=== PATIENT | female | born 1960 | race Caucasian/White ===

== ENCOUNTER → 2017-12-06 | Outpatient (CLI) | payer SELFPAY ==
--- NOTE | 2017-12-06 14:33 | RADIOLOGY REPORT (SQ) ---
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 NUMBER OF VIEWS: Three views. TECHNIQUE: AP, lateral, and oblique radiographic images acquired of the right ankle. LIMITATIONS: None. FINDINGS: MINERALIZATION: Normal. BONES: No acute fracture or dislocation. No worrisome bone lesions. Moderate-sized plantar calcanea l spur. JOINTS: No effusions. SOFT TISSUES: No soft tissue swelling. No foreign body. OTHER: No other significant finding. IMPRESSION: NEGATIVE STUDY OF THE RIGHT ANKLE. NO RADIOGRAPHIC EVIDENCE OF ACUTE INJURY. TECHNICAL DOCUMENTATION: JOB ID: [id number] [employer]- All Rights Reserved
== END ==
LOC: EDBD → RAD 13:39
PROVIDERS: ATTEND Internal Medicine Hematology & Oncology
DX: C50.212 Malignant neoplasm of upper-inner quadrant of left female breast (principal); M79.604 Pain in right leg

== ENCOUNTER → 2017-12-08 | Outpatient (CLI) | payer SELFPAY ==
--- NOTE | 2017-12-08 16:29 | RADIOLOGY REPORT (SQ) ---
EXAM DESCRIPTION: NM WHOLE BODY BONE SCAN COMPLETED DATE/TIME: 12/08/2017 3:37 pm REASON FOR STUDY: MAL GLORIA OF UPPER INNER QUADRANT OF LEFT FEMALE BREAST C50.212 MALIG NEOPLASM OF U PPER-INNER QUADRANT OF LEFT FEMAL COMPARISON: No available imaging studies for comparison. RADIONUCLIDE AND DOSE: 21 millicuries Tc99m MDP. The route of agent administration: Intravenous. ADDITIONAL DRUGS AND DOSES: None. TECHNIQUE: Routine delayed images at 3 hour post radionuclide injection acquired of the bony skeleto n including anterior and posterior whole-body projections and additional focused images as needed. LIMITATIONS: None. FINDINGS: BONES: Activity involving the greater trochanter of the right hip. Focal area of increase d activity in the posterior left 3rd rib. No other areas of unusual bony activity. KIDNEYS: Symmetric excretion without obstruction. OTHER: No other significant finding. IMPRESSION: 1. FOCAL AREA OF ACTIVITY INVOLVING THE GREATER TROCHANTER OF THE RIGHT HIP. THIS MAY BE RELATED TO PREVIOUS TRAUMA OR COULD BE DUE TO INFLAMMATION SECONDARY TO TROCHANTERIC BURSITIS. 2. FOCAL AREA OF INCREASED ACTIVITY IN THE POSTERIOR LEFT 3RD RIB. THIS MAY BE RELATED TO PRIOR TRAU MA. 3. NO OTHER AREAS OF ABNORMAL ACTIVITY IN THE SKELETON. CORRELATION OF THE ABOVE FINDINGS WITH X-RAY S OF THE RIGHT HIP AND POSTERIOR LEFT RIBS SHOULD BE CONSIDERED TO EXCLUDE SIGNIFICANT PATHOLOGY. COMMENT: Quality measure 147: No available prior imaging studies for comparison TECHNICAL DOCUMENTATION: JOB ID: [id number] [employer]- All Rights Reserved
== END ==
LOC: EDBD → RAD 08:44
PROVIDERS: ATTEND Internal Medicine Hematology & Oncology
DX: C50.212 Malignant neoplasm of upper-inner quadrant of left female breast (principal); C50.412 Malignant neoplasm of upper-outer quadrant of left female breast
CPT/HCPCS: 78306; A9561; Q9969

== ENCOUNTER → 2017-12-11 | Outpatient (CLI) | payer SELFPAY ==
--- NOTE | 2017-12-11 13:54 | RADIOLOGY REPORT (SQ) ---
EXAM DESCRIPTION: HIP RIGHT AP/LATERAL COMPLETED DATE/TIME: 12/11/2017 10:23 am REASON FOR STUDY: ABN BONE SCAN C50.212 MALIG NEOPLASM OF UPPER-INNER QUADRANT OF LEFT FEMAL COMPARISON: None. NUMBER OF VIEWS: Two views. TECHNIQUE: AP pelvis and additional frog-leg view of the right hip. LIMITATIONS: None. FINDINGS: No fracture or aggressive bone lesion. Enthesopathic changes right greater trochanter. S I joints are normal. IMPRESSION: Enthesopathy. No aggressive bone lesion. TECHNICAL DOCUMENTATION: JOB ID: [id number] [employer]- All Rights Reserved
--- NOTE | 2017-12-11 13:56 | RADIOLOGY REPORT (SQ) ---
EXAM DESCRIPTION: RIBS LEFT W/PA CHEST COMPLETED DATE/TIME: 12/11/2017 10:23 am REASON FOR STUDY: ABN BONE SCAN C50.212 MALIG NEOPLASM OF UPPER-INNER QUADRANT OF LEFT FEMAL COMPARISON: None. TECHNIQUE: Frontal view of the chest and additional views of the left ribs acquired. NUMBER OF VIEWS: Three view. LIMITATIONS: None. FINDINGS: FRONTAL CXR: No pneumothorax. No pleural effusion. No atelectasis or infiltrates. RIBS: No displaced rib fractures. No lytic or blastic bony lesions. OTHER: No other significant finding. IMPRESSION: No evidence of rib fracture or lytic bone lesion. COMMENT: SITE OF TRAUMA/COMPLAINT MARKED/STAMP COMPLETED: NOT APPLICABLE. TECHNICAL DOCUMENTATION: JOB ID: [id number] [employer]- All Rights Reserved
== END ==
LOC: EDBD 09:57 → RAD 09:57
PROVIDERS: ATTEND Internal Medicine Hematology & Oncology
DX: C50.212 Malignant neoplasm of upper-inner quadrant of left female breast (principal)

== ENCOUNTER 2017-12-20 11:59 | Day surgery (SDC) | payer MEDICAID ==
[2017-12-13 11:16] LABS: HEMATOCRIT 40.7 % (36.0-47.0); HEMOGLOBIN 13.9 g/dL (12.0-15.5); MEAN CORPUSCULAR HEMOGLOBIN 30.5 pg (27.0-33.4); MEAN CORPUSCULAR HGB CONC 34.3 g/dL (32.0-36.0); MEAN CORPUSCULAR VOLUME 89 fl (80-97); PLATELET COUNT 212 10^3/uL (150-450); RED BLOOD COUNT 4.57 10^6/uL (3.72-5.28); RED CELL DISTRIBUTION WIDTH 13.7 % (11.5-14.0); WHITE BLOOD COUNT 8.5 10^3/uL (4.0-10.5)
[~2017-12-20 11:59] MED LIST: ACETAMINOPHEN 325 MG TABLET PO PRN; CLINDAMYCIN 600 MG/D5W RTU 600 MG/50 ML RTUPB IV PRN; LACTATED RINGERS 1000 ML IV PRN; LIDOCAINE 0.5% INJ-PF (5 MG/ML) 50 ML SDV SUBCUT PRN; SCOPOLAMINE HYDROBROMIDE 1.5 MG PATCH.TD72 TD PRN
[2017-12-20] MEDS ORDERED: LIDOCAINE 1%/EPINEPHRINE INJ 20 ML VIAL ONE (12:50)
[2017-12-20] MEDS ORDERED: MIDAZOLAM 2 MG/2 ML INJ ONE (14:45)
[2017-12-20] MEDS ORDERED: PROPOFOL INJ 200 MG/20 ML VIAL IV ONE (14:45)
[2017-12-20] MEDS ORDERED: FENTANYL CITRATE INJ/PF 100 MCG/2 ML AMPUL ONE (14:45)
[2017-12-20] MEDS ORDERED: PROMETHAZINE HCL INJ 25 MG/1 ML VIAL IV PRN ×2 (15:19)
[2017-12-20] MEDS ORDERED: FENTANYL CITRATE INJ/PF 100 MCG/2 ML AMPUL IV PRN ×3 (15:19)
[2017-12-20] MEDS ORDERED: DIPHENHYDRAMINE HCL 50 MG/ML VIAL IV PRN (15:19)
--- NOTE | 2017-12-20 15:31 | Operative Report ---
Operative Report DATE OF SURGERY: 12/20/17 PREOPERATIVE DIAGNOSIS: Locally advanced left breast carcinoma POSTOPERATIVE DIAGNOSIS: Same OPERATION: 1. Focused ultrasound of the right neck. 2. Ultrasound directed insertion of right internal jugular vein single-lumen Kfzvsy-d-Zkvs catheter. 3. Portable upright chest x-ray. SURGEON: VIET FIELD 1ST CASTING OPERATOR: DORIS AMAYA ANESTHESIA: LMAC TISSUE REMOVED OR ALTERED: None COMPLICATIONS: None ESTIMATED BLOOD LOSS: Scant INTRAOPERATIVE FINDINGS: See below PROCEDURE: Informed consent was obtained. The patient was placed in Trendelenburg the right neck and chest wall were exposed, and prepped and draped in a sterile fashion. Surgical plan and surgical timeout discussed. The right neck was anesthetized with 1% lidocaine without epinephrine. Using the variable frequency linear transducer, real time, and a micro needle and wire were threaded into the right internal jugular vein. Suitable site for placement of the port was chosen in the right subclavian position. Skin was anesthetized with 1% plain lidocaine. 3 cm incision was made with the knife, and a port pocket developed large enough to accommodate a single-chamber port. The catheter was then trimmed to the appropriate length, tunneled between the 2 incisions, and attached to the port with the plastic ring. The port was tucked into the right subclavian pocket The micro wire was switched over to a conventional guidewire 0.030 inches all under fluoroscopic guidance. The dilator introducer sheath, 9 Maltese, was threaded over the guidewire, dilator and wire removed, and catheter threaded into the strip away sheath. Sheath was removed under fluoroscopic guidance, leaving the catheter in good position. By fluoroscopy the tip of the catheter was in the deep SVC. There is no evidence of ectopy no evidence of kinking of the catheter. Win needle was used to aspirate and flush the catheter successfully. Wounds closed with 3-0 Vicryl benzoin and Steri-Strips. Patient tolerated procedure well. She was taken to recovery room stable condition. The physician student assistant, Ms. Fraga, provided assistance during this case by: Assisting and port insertion, retracting tissue, instillation of local anesthesia and closure of skin incisions.
--- NOTE | 2017-12-20 15:35 | PDOC DISCHARGE SUMMARY ---
Discharge Summary (SDC) - Discharge Final Diagnosis: Left breast cancer Date of Surgery: 12/20/17 Discharge Date: 12/20/17 Condition: Stable Treatment or Instructions: Wound Care: You may shower and get the incision sites wet in 48 hours. Do not remove steri strips (paper bandaids). They may get wet with warm water and soap, pat dry, cover if needed. Steri strips will be removed at your follow up appointment. You may take Toradol 10 mg one pill by mouth every six hours as needed for pain. Follow up: Follow up at [facility] in 10-14 days. Call clinic sooner with any questions/concerns. [facility]: [phone] Prescriptions: Ketorolac Tromethamine [Toradol 10 mg Tablet] 10 mg PO Q6HP PRN #20 tablet PRN Reason: Referrals: HEIDI MEADE,NBA Guadalupe MD [Primary Care Provider] - Discharge Diet: As Tolerated Discharge Activity: Activity As Tolerated Report the Following to Your Physician Immediately: Shortness of Breath, Increase in Pain, Fever over 101 Degrees, Unusual Bleeding, Swelling, Warmth, Drainage-Foul Smelling
[2017-12-20 17:32] VITALS: BP 134/84
--- NOTE | 2017-12-20 18:30 | RADIOLOGY REPORT (SQ) ---
EXAM DESCRIPTION: FLUORO/CV PLACEMENT COMPLETED DATE/TIME: 12/20/2017 5:16 pm REASON FOR STUDY: PORT-A-CATH C50.911 MALIGNANT NEOPLASM OF UNSP SITE OF RIGHT FEMALE DIVYA COMPARISON: None. FLUOROSCOPY TIME: 0.1 minutes 3 images saved to PACS. TECHNIQUE: Intra-operative images acquired during surgical procedure to evaluate progress. NUMBER OF IMAGES: 3 LIMITATIONS: None. FINDINGS: Selected images from right port placement. IMPRESSION: IMAGE(S) OBTAINED DURING PROCEDURE. COMMENT: Quality ID [id number]: Final reports for procedures using fluoroscopy that document radiation exp osure indices, or exposure time and number of fluorographic images (if radiation exposure indices are not available) Please consult full operative report of the attending physician for description of the procedure. TECHNICAL DOCUMENTATION: JOB ID: [id number] [employer]- All Rights Reserved
== END 2017-12-20 17:20 | disposition home or self-care (01) ==
LOC: EDBD → OROUT 11:59
PROVIDERS: ATTEND Surgery
PROC: 05H533Z Insertion of Infusion Device into Right Subclavian Vein, Percutaneous Approach (ICD-10-PCS; principal; 2017-12-20 14:30)
DX: C50.912 Malignant neoplasm of unspecified site of left female breast (principal); E89.0 Postprocedural hypothyroidism; E05.00 Thyrotoxicosis with diffuse goiter without thyrotoxic crisis or storm; Z88.5 Allergy status to narcotic agent; Z88.8 Allergy status to other drugs, medicaments and biological substances; Z88.2 Allergy status to sulfonamides; Z79.899 Other long term (current) drug therapy
CPT/HCPCS: 36561; 36415; 85027; 77001; C1752; C1788; J2250; J3010; J3490; J2704; J1642; 532

== ENCOUNTER 2017-12-21 09:41 | Outpatient (CLI) | payer MEDICAID ==
[~2017-12-21 09:41] MED LIST changes: -ACETAMINOPHEN 325 MG TABLET PO PRN; -CLINDAMYCIN 600 MG/D5W RTU 600 MG/50 ML RTUPB IV PRN; +CYCLOPHOSPHAMIDE IV PRN; +DIPHENHYDRAMINE HCL 50 MG/ML VIAL IV PRN; +DOCETAXEL IV PRN; +FAMOTIDINE/PF 20 MG in NORMAL SALINE 50 ML IV PRN; -LACTATED RINGERS 1000 ML IV PRN; -LIDOCAINE 0.5% INJ-PF (5 MG/ML) 50 ML SDV SUBCUT PRN; +NORMAL SALINE 500 ML IV PRN; +NORMAL SALINE IV PRN; +ONDANSETRON HCL/PF 16 MG, DEXAMETHASONE SOD PHOSPHATE 20 MG in NORMAL SALINE 50 ML IV PRN; -SCOPOLAMINE HYDROBROMIDE 1.5 MG PATCH.TD72 TD PRN
== END 2017-12-21 14:47 | disposition home or self-care (01) ==
LOC: II 09:41 → 5TH 09:44 → II 14:47
PROVIDERS: ATTEND Internal Medicine Hematology & Oncology
PROC: 3E0330M Introduction of Antineoplastic, Monoclonal Antibody, into Peripheral Vein, Percutaneous Approach (ICD-10-PCS; principal; 2017-12-21)
PROC: 3E0333Z Introduction of Anti-inflammatory into Peripheral Vein, Percutaneous Approach (ICD-10-PCS; 2017-12-21)
PROC: 3E033GC Introduction of Other Therapeutic Substance into Peripheral Vein, Percutaneous Approach (ICD-10-PCS; 2017-12-21)
DX: Z51.11 Encounter for antineoplastic chemotherapy (principal); C50.212 Malignant neoplasm of upper-inner quadrant of left female breast
CPT/HCPCS: 96413; 96415; 96367; 96374; 96360; J9070; J1200; J2405; J7050; S0028; J1100; J9171; 96361; 96375; 96417

== ENCOUNTER 2017-12-22 13:11 | Outpatient (CLI) | payer MEDICAID ==
[~2017-12-22 13:11] MED LIST changes: -CYCLOPHOSPHAMIDE IV PRN; -DIPHENHYDRAMINE HCL 50 MG/ML VIAL IV PRN; -DOCETAXEL IV PRN; -FAMOTIDINE/PF 20 MG in NORMAL SALINE 50 ML IV PRN; -NORMAL SALINE 500 ML IV PRN; -NORMAL SALINE IV PRN; -ONDANSETRON HCL/PF 16 MG, DEXAMETHASONE SOD PHOSPHATE 20 MG in NORMAL SALINE 50 ML IV PRN; +PEGFILGRASTIM INJ 6 MG/0.6 ML DISP.SYRIN SUBCUT PRN
[2017-12-22 14:58] VITALS: BP 105/52
== END 2017-12-22 14:59 | disposition home or self-care (01) ==
LOC: II 13:11 → 5TH 13:13 → II 14:59
PROVIDERS: ATTEND Internal Medicine Hematology & Oncology
PROC: 3E013GC Introduction of Other Therapeutic Substance into Subcutaneous Tissue, Percutaneous Approach (ICD-10-PCS; principal; 2017-12-22)
DX: Z76.89 Persons encountering health services in other specified circumstances (principal); C50.212 Malignant neoplasm of upper-inner quadrant of left female breast; D70.1 Agranulocytosis secondary to cancer chemotherapy
CPT/HCPCS: 96372; J2505

== ENCOUNTER 2018-02-02 15:33 | Outpatient (CLI) | payer MEDICAID ==
[2018-02-02 16:00] VITALS: BP 137/99
== END 2018-02-02 16:43 | disposition home or self-care (01) ==
LOC: II 15:33 → 5TH 15:40 → II 16:43
PROVIDERS: ATTEND Internal Medicine
PROC: 3E013GC Introduction of Other Therapeutic Substance into Subcutaneous Tissue, Percutaneous Approach (ICD-10-PCS; principal; 2018-02-02)
DX: Z76.89 Persons encountering health services in other specified circumstances (principal); C50.212 Malignant neoplasm of upper-inner quadrant of left female breast; D70.1 Agranulocytosis secondary to cancer chemotherapy
CPT/HCPCS: 96372; J2505

== ENCOUNTER 2018-03-28 08:13 | Observation (INO) | payer MEDICAID ==
[2018-03-21 11:38] LABS: HEMATOCRIT 39.6 % (36.0-47.0); HEMOGLOBIN 13.3 g/dL (12.0-15.5); MEAN CORPUSCULAR HEMOGLOBIN 30.6 pg (27.0-33.4); MEAN CORPUSCULAR HGB CONC 33.5 g/dL (32.0-36.0); MEAN CORPUSCULAR VOLUME 92 fl (80-97); PLATELET COUNT 236 10^3/uL (150-450); RED BLOOD COUNT 4.33 10^6/uL (3.72-5.28); RED CELL DISTRIBUTION WIDTH 17.3 % (11.5-14.0); WHITE BLOOD COUNT 5.6 10^3/uL (4.0-10.5)
[2018-03-21 12:06] LABS: ANION GAP 13 (5-19); BLOOD UREA NITROGEN 13 mg/dL (7-20); CALCIUM 9.5 mg/dL (8.4-10.2); CARBON DIOXIDE 27 mmol/L (22-30); CHLORIDE 105 mmol/L (98-107); GLUCOSE 102 mg/dL (75-110); SODIUM 144.7 mmol/L (137-145)
[~2018-03-28 08:13] MED LIST changes: +CEFAZOLIN 1 GM/D5W RTU 1 GM/50 ML RTUPB IV PRN; +LACTATED RINGERS 1000 ML IV PRN; +LIDOCAINE 0.5% INJ-PF (5 MG/ML) 50 ML SDV SUBCUT PRN; +LIDOCAINE 4% TRANSPARENT DRESSING 5 GM KIT TP PRN; -PEGFILGRASTIM INJ 6 MG/0.6 ML DISP.SYRIN SUBCUT PRN; +SCOPOLAMINE HYDROBROMIDE 1.5 MG PATCH.TD72 TD PRN
[2018-03-28] MEDS ORDERED: METHYLENE BLUE 50 MG/10 ML AMPULE ONE (08:55)
[2018-03-28] MEDS ORDERED: LIDOCAINE 1%/EPINEPHRINE INJ 20 ML VIAL ONE (08:55)
[2018-03-28] MEDS ORDERED: MICROFIBRILLAR COLLAGEN 1 GM PACK ONE (08:55)
[2018-03-28] MEDS ORDERED: MIDAZOLAM 2 MG/2 ML INJ ONE ×2 (10:05→10:38)
[2018-03-28] MEDS ORDERED: FENTANYL CITRATE INJ/PF 250 MCG/5 ML AMPULE ONE ×2 (10:06→10:37)
[2018-03-28] MEDS ORDERED: ACETAMINOPHEN 100 ML IV ONE (10:06)
[2018-03-28] MEDS ORDERED: PROPOFOL INJ 200 MG/20 ML VIAL IV ONE ×2 (10:06→10:38)
[2018-03-28] MEDS ORDERED: ONDANSETRON HCL INJ/PF 4 MG/2 ML SDV ONE (10:38)
[2018-03-28] MEDS ORDERED: DEXAMETHASONE SOD PHOSPHATE INJ 4 MG/1 ML VIAL ONE (10:38)
[2018-03-28] MEDS ORDERED: HYDROMORPHONE HCL INJ/PF 2 MG/ML AMPULE ONE ×2 (10:38)
[2018-03-28] MEDS ORDERED: PROMETHAZINE HCL INJ 25 MG/1 ML VIAL ONE (10:38)
--- NOTE | 2018-03-28 10:43 | RADIOLOGY REPORT (SQ) ---
EXAM DESCRIPTION: NM LYMPHATICS/LYMPH GLANDS COMPLETED DATE/TIME: 03/28/2018 10:26 am REASON FOR STUDY: BREAST CANCER C50.912 MALIGNANT NEOPLASM OF UNSPECIFIED SITE OF LEFT FEMAL COMPARISON: None. RADIONUCLIDE AND DOSE: 577 microcuries TC-99m tilmanocept - [employer]. The route of agent administration: Subcutaneous in the skin. TECHNIQUE: The skin of the left breast was prepped in sterile fashion. The radiopharmaceutical was administered in equally divided doses in the periareolar breast, from the 9 o'clock position through the 3 o'clock position. LIMITATIONS: None. FINDINGS: Images demonstrate activity at the injection site. There is also activity migrated toward s the left axilla. IMPRESSION: ADMINISTRATION OF RADIOPHARMACEUTICAL FOR SENTINEL LYMPH NODE EVALUATION. TECHNICAL DOCUMENTATION: JOB ID: [id number] [employer]- All Rights Reserved Reading location - IP/workstation name: [email or web address]
[2018-03-28] MEDS ORDERED: MEPERIDINE HCL/PF INJ 25 MG/1 ML DISP.SYRIN IV PRN (12:05)
[2018-03-28] MEDS ORDERED: FENTANYL CITRATE INJ/PF 100 MCG/2 ML AMPUL IV PRN ×3 (12:05)
[2018-03-28] MEDS ORDERED: DIPHENHYDRAMINE HCL 50 MG/ML VIAL IV PRN (12:05)
[2018-03-28] MEDS ORDERED: ONDANSETRON HCL INJ/PF 4 MG/2 ML SDV IV PRN (12:05)
--- NOTE | 2018-03-28 13:32 | Discharge Summary ---
Discharge Summary (SDC) - Discharge Final Diagnosis: Left Breast Cancer Date of Surgery: 03/28/18 Discharge Date: 03/28/18 Condition: Stable Treatment or Instructions: [facility] [address] [place] [id number] Care Instructions Following Your Mastectomy Activities: Resume normal activities when you feel comfortable. It is best to remain as active as possible to speed your recovery. It is common to experience some fatigue after surgery and you may find that short naps are helpful. Avoid strenuous activity such as weight lifting, tennis, etc at your surgical site for two weeks. Perform gentle arm exercises daily and do not favor your operative arm to due increased risk of mobility issues postoperatively. No driving for 7 days after surgery. Do not drive if you are taking pain medication other than Tylenol or Ibuprofen. No swimming, tub baths or soaking in a hot tub for 4 weeks. There are no dietary restrictions. Do not smoke as this impairs wound healing. Surgical Site care: Remove your dressing 48 hours after surgery. Leave the steri-strips underneath in place. You may shower after removing the dressing to include washing the wound with soap and water using your hands. Do not scrub the incision. Pat the area dry with a towel. You do not need to recover the wound although some patients find that they feel more comfortable using a light dressing for a few days to absorb any minimal drainage which may occur. Many patients also find that keeping a dressing around the drain exit site is helpful to absorb any drainage which may leak around the tubing. If you use a dressing in this manner change it at least every day. Do not use heating pad or apply an ice pack to the operative site. You may apply deodorant if you are careful to avoid getting it on the wound itself. Empty the bulbs attached to the drain every 12 hours and measure the fluid output separately from each drain. Please also strip each drain each time you empty it to prevent clogging. Keep a record of the output and bring this record with you each time you come to the office for postoperative care. A drain is ready to be removed when its output is 30 mL per 24 hours per drain for 2 consecutive days. Please call the office to inform our staff that you need to come in for drain removal. Medications: Take Motrin (ibuprofen) 600 mg to 800 mg every 8 hours around the clock. You may taper this medication as you experience less pain. Take Toradol one to tablets every six hours as needed for breakthrough pain. Resume all of your normal prescription medications after your surgery unless instructed otherwise. Follow-up: Call our office at to make a follow-up appointment in 10-14 days. Your doctor will call to discuss the pathology report with you as soon as it is available. Concerns: If you had a sentinel lymph node biopsy with your mastectomy, your urine may have a greenish discoloration. This is normal and will resolve as the blue dye slowly leaves your system. If you notice significant leakage around the drains , this is not normal. The drains may be clogged. Please call our office to come in immediately for the drains to be checked. Some bruising may occur and will go away over time. If you have a fever of 101.5 or greater, chills, redness at the incision site, excessive drainage from your wound or severe pain not relieved by pain medication, call your doctor. A physician is available 24 hours a day 7 days a week in addition to regular office hours. If problems arise after normal office hours please call the hospital at . Please call if you have any questions or concerns. Prescriptions: Ketorolac Tromethamine [Toradol 10 mg Tablet] 10 mg PO Q6HP PRN #20 tablet PRN Reason: Referrals: JAYCE ROSALES MD [Primary Care Provider] - Discharge Diet: As Tolerated Discharge Activity: No Lifting Over 10 Pounds, No Lifting/Push/Pulling, Walk Frequently Report the Following to Your Physician Immediately: Fever over 101 Degrees, Swelling, Warmth, Increased Soreness, Drainage-Foul Smelling
--- NOTE | 2018-03-28 13:33 | Operative Report ---
Operative Report DATE OF SURGERY: 03/28/18 PREOPERATIVE DIAGNOSIS: Invasive left breast carcinoma status post neoadjuvant chemo therapy POSTOPERATIVE DIAGNOSIS: same OPERATION: 1. Left mastectomy with ultrasound guidance. 2. [place] lymph node biopsy 6, left axilla. 3. Drainage of left chest wall SURGEON: VIET BOOTH KNOTTING MACHINE OPERATOR: DORIS AMAYA ANESTHESIA: GA TISSUE REMOVED OR ALTERED: [place] lymph nodes left axilla 6; left breast with tumor COMPLICATIONS: None ESTIMATED BLOOD LOSS: 50 cc INTRAOPERATIVE FINDINGS: see below PROCEDURE: The patient was seen in the preop holding area after undergoing lymphoscintigraphy of the left breast. She was found to have increased uptake in the left axilla. We felt the sentinel lymph node mapping was successful. The patient's left breast was marked, then the patient was taken to the main operating room where general anesthesia was induced. Left arm was abducted. We proceeded with dual mapping technique using full strength methylene blue dye. Approximately 2 cc of the dye was injected into the left breast, areolar border, 2 o'clock position, intradermal, with the 25- gauge needle. Left breast was massaged approximately 5 minutes. The left breast and axilla were then prepped and draped sterile fashion with Betadine Surgical plan surgical timeout were conducted. We now completed intraoperative ultrasonography. The patient known invasive breast cancer upper inner quadrant left breast was identified with clip markers. This was against the chest wall. It appeared to be 1.5-1.7 centimeters in vertical height. We used the localization of the tumor to guide our marking for the mastectomy as this tumor was approximately 8 cm from the nipple. The skin was marked, and an ellipse was made with a #10 blade consistent with a conventional slightly diagonally oriented mastectomy incision.. Inferior skin flaps were raised. Breast was taken off of the chest wall from the infraclavicular fascia, the aspen-sternal fascia, and the fascia overlying the serratus anterior. We were careful to ensure there was no evidence of tumor at the inferior margin of the past as it came off the chest wall. There appeared to be no indication of scar formation or malignancy on the posterior border, or involvement of the musculature of the chest wall. The L of Sinha was mobilized with the specimen and the breast draped out laterally. We now proceeded with the sentinel lymph. The first sentinel lymph node was hot blue Level One, with an in vivo count of 7504. Ex vivo count was 3862. All sentinel lymph nodes were harvested in the same vicinity, low axilla level 1. The second sentinel lymph ex vivo count of 13,695. This third sentinel lymph node was very small, hot blue with an in vivo count of 3061 and an ex vivo count of 2059. The fourth sentinel lymph node was also very small with an ex vivo count of 1839. We continue to examine the axilla carefully and the remained persistent activity although diminished. 2 additional sentinel lymph nodes were harvested , sentinel lymph node 5 blue and hot with an in vivo count of 1915, the final lymph node harvested adjacent to the previous, now labeled #6 blue and hot with an ex vivo count of 1151. Background counts were negligible. We felt the sentinel lymph node harvesting component of the operation was complete. The chest wall, and lower axilla were inspected for bleeding there was none. [place] the operation was complete. Large Saw drain was placed in the inferior skin flap, secured to the skin with 2-0 Prolene suture. We did mobilize the medial aspect of the superior skin flap. This facilitated primary closure using 2-0 running Vicryl suture. Dermabond glue was applied. Drain hooked to bulb. Patient taught procedure well, extubated, taken recovery in stable condition. The physician executive assistant to general counsel, Ms. Fraga, provided assistance during this case by: Assisting with retracting tissue, instillation of local anesthesia and closure of skin incisions.
[2018-03-28] MEDS ORDERED: ALBUTEROL SULFATE HFA (90 MCG/PUFF) 200 PUFF/8.5 GM MDI IH ONE (13:48)
[2018-03-28] MEDS: FENTANYL CITRATE INJ/PF 100 MCG/2 ML AMPUL ONE ×2 (14:45→14:50)
[2018-03-28] MEDS ORDERED: DEXTROSE 5%-LACTATED RINGERS 1,000 ML IV PRN (15:45)
[2018-03-28] MEDS ORDERED: KETOROLAC TROMETHAMINE INJ/PF 30 MG/1 ML SDV IV PRN (15:50)
[2018-03-28] MEDS ORDERED: ACETAMINOPHEN INJ/PF 1000 MG/100 ML SDV IV SCH (18:00)
[2018-03-28] MEDS: ACETAMINOPHEN 100 ML IV SCH (19:04)
[2018-03-29] MEDS: ACETAMINOPHEN 100 ML IV SCH ×2 (00:22→07:17)
[2018-03-29] MEDS ORDERED: PROCHLORPERAZINE MALEATE 10 MG TABLET PO PRN (01:07)
[2018-03-29] MEDS ORDERED: GABAPENTIN 100 MG CAPSULE PO SCH ×2 (09:00→18:00)
[2018-03-29] MEDS ORDERED: POLYETHYLENE GLYCOL 3350 POWDER 17 GM/1 PACKET PO SCH (10:00)
[2018-03-29 10:38] VITALS: BP 112/68
[2018-03-29] MEDS ORDERED: GABAPENTIN 300 MG CAPSULE PO SCH (13:00)
--- NOTE | 2018-03-29 13:35 | DISCHARGE SUMMARY E ---
Discharge Summary NAME: SUMIT MATHUR : 1960 AGE: 57Y ADMITTED: 03/28/2018 DISCHARGED: 03/29/2018 REASON FOR ADMISSION: Left mastectomy. SUMMARY OF HOSPITALIZATION: The patient is a 57-year-old white female with a history of invasive left breast cancer status post neoadjuvant chemotherapy. He was then brought through ambulatory surgery for definitive surgical management. The patient was taken to the operating room where she underwent left mastectomy in conjunction with some old biopsy left axilla on 03/28/[address] Lora. She tolerated the procedure well. She had 1 drain postoperatively placed. She was taught drain care. By the following day, she was doing well, ready for discharge home. FINAL DIAGNOSIS: Invasive left breast carcinoma status post neoadjuvant chemotherapy, now status post left mastectomy with sentinel node biopsy by Dr. Lora. DISPOSITION: The patient will be discharged home in the care of her family. Follow up with Dr. Lora at [facility] in 1 week, take Tylenol alternated with Motrin p.r.n. pain and will empty her drain as instructed. DICTATING PHYSICIAN: VIET LORA M.D. [id number] PHY#: [id number] ID: [id number] JOB#: [id number] ACCT: [id number] cc:VIET LORA M.D. >
[2018-03-29] MEDS ORDERED: THYROID (PORK) 60 MG TABLET PO SCH (22:00)
== END 2018-03-29 17:30 | disposition home or self-care (01) ==
LOC: OROUT 08:13 → INOR 08:14 → 2S 16:03 → OROUT 03-29 11:30
PROVIDERS: ADMIT Surgery; ATTEND Surgery
PROC: 07B60ZX Excision of Left Axillary Lymphatic, Open Approach, Diagnostic (ICD-10-PCS; 2018-03-28)
PROC: 0HTU0ZZ Resection of Left Breast, Open Approach (ICD-10-PCS; principal; 2018-03-28 12:00)
DX: C50.212 Malignant neoplasm of upper-inner quadrant of left female breast (principal); E89.0 Postprocedural hypothyroidism; E05.00 Thyrotoxicosis with diffuse goiter without thyrotoxic crisis or storm; E66.9 Obesity, unspecified; Z88.5 Allergy status to narcotic agent; Z88.0 Allergy status to penicillin; Z88.8 Allergy status to other drugs, medicaments and biological substances; Z79.899 Other long term (current) drug therapy; Z79.891 Long term (current) use of opiate analgesic; Z68.33 Body mass index [BMI] 33.0-33.9, adult; I25.2 Old myocardial infarction; Z01.818 Encounter for other preprocedural examination; Z90.49 Acquired absence of other specified parts of digestive tract
CPT/HCPCS: 19307; 36415; 85027; 80048; 88342 ×2; 88341 ×2; 88305 ×2; 88307 ×2; 78195; 94799 ×2; G0378 ×2; G0379; A9520; J2250; J0690; J1100; J3010 ×2; J3490 ×3; J1885; J1170; J2550; J2405; J2704; J0131 ×2; Q9968; 1610

== ENCOUNTER 2018-10-31 05:26 | Day surgery (SDC) | payer MEDICAID ==
[~2018-10-31 05:26] MED LIST changes: -CEFAZOLIN 1 GM/D5W RTU 1 GM/50 ML RTUPB IV PRN; -LIDOCAINE 4% TRANSPARENT DRESSING 5 GM KIT TP PRN; -SCOPOLAMINE HYDROBROMIDE 1.5 MG PATCH.TD72 TD PRN
[2018-10-31] MEDS ORDERED: LIDOCAINE 0.5% INJ-PF (5 MG/ML) 50 ML SDV ONE (06:47)
[2018-10-31] MEDS ORDERED: BUPIVACAINE HCL 0.25 % INJ/PF (2.5 MG/1 ML) 30 ML VIAL ONE (06:47)
[2018-10-31] MEDS ORDERED: LIDOCAINE 2% INJ-PF (20 MG/ML) 10 ML AMPUL ONE (07:03)
[2018-10-31] MEDS ORDERED: MIDAZOLAM 2 MG/2 ML INJ ONE (07:03)
[2018-10-31] MEDS ORDERED: FENTANYL CITRATE INJ/PF 100 MCG/2 ML AMPUL ONE (07:03)
[2018-10-31] MEDS ORDERED: PROPOFOL INJ 200 MG/20 ML VIAL IV ONE (07:04)
[2018-10-31] MEDS ORDERED: ONDANSETRON HCL INJ/PF 4 MG/2 ML SDV IV PRN (07:51)
[2018-10-31] MEDS ORDERED: OXYCODONE-ACETAMINOPHEN 5-325 MG TABLET PO PRN ×2 (07:51)
[2018-10-31] MEDS ORDERED: PROMETHAZINE HCL INJ 25 MG/1 ML VIAL IV PRN ×2 (07:51)
[2018-10-31] MEDS ORDERED: FENTANYL CITRATE INJ/PF 100 MCG/2 ML AMPUL IV PRN ×3 (07:51)
[2018-10-31] MEDS ORDERED: MEPERIDINE HCL/PF INJ 25 MG/1 ML DISP.SYRIN IV PRN (07:51)
[2018-10-31] MEDS ORDERED: DIPHENHYDRAMINE HCL 50 MG/ML VIAL IV PRN (07:51)
[2018-10-31] MEDS ORDERED: KETOROLAC TROMETHAMINE 10 MG TABLET PO PRN (08:17)
--- NOTE | 2018-10-31 08:17 | Discharge Summary ---
Discharge Summary (SDC) - Discharge Final Diagnosis: Breast cancer with port in place Date of Surgery: 10/31/18 Discharge Date: 10/31/18 Condition: Stable Treatment or Instructions: WOUND CARE: 1) Do not get area wet for 48 hours. Leave pressure dressing on for 48 hours. At that time, you may shower. Remove gauze and tape. Leave steri strips intact. Allow warm water to wash over area. Pat dry and cover if needed. 2) Monitor the area for signs of infection: redness, swelling, foul-smelling drainage. PAIN MANAGEMENT: 1) You may take Toradol 10mg one pill by mouth every six hours as needed for pain. FOLLOW UP: 1) Follow up at [facility] in 7-10 days. Call clinic sooner with questions/concerns. Prescriptions: Ketorolac Tromethamine [Toradol 10 mg Tablet] 10 mg PO Q6HP PRN #20 tablet PRN Reason: Referrals: JAYCE ROSALES MD [Primary Care Provider] - Discharge Diet: As Tolerated Discharge Activity: Walk Frequently Report the Following to Your Physician Immediately: Increase in Pain, Fever over 101 Degrees, Unusual Bleeding, Redness, Swelling, Warmth, Drainage-Foul Smelling
--- NOTE | 2018-10-31 08:17 | Operative Report ---
Operative Report DATE OF SURGERY: 10/31/18 PREOPERATIVE DIAGNOSIS: Breast carcinoma status post multimodality therapy POSTOPERATIVE DIAGNOSIS: Same OPERATION: Removal of right subclavian Aioltq-b-Aqxu catheter SURGEON: VIET FIELD ANESTHESIA: LMAC TISSUE REMOVED OR ALTERED: None COMPLICATIONS: None ESTIMATED BLOOD LOSS: Scant INTRAOPERATIVE FINDINGS: See below PROCEDURE: Patient was taken from the preop holding area the main operating room where LMAC anesthesia was induced, arms tucked to the sides, and right subclavian area prepped and draped sterile fashion Surgical plan and surgical timeout were conducted. Skin was anesthetized with 1% plain lidocaine. A 3 cm incision was needed for the previous right subclavian scar. The underlying Aqrtls-j-Esug was removed, leaving the pseudocapsule intact. The port was disposed of and the wound closed in layers with 3-0 Vicryl 4-0 Ethilon suture. Benzoin Steri-Strips and a compression dressing applied Patient tolerated procedure well. The physician orthotics assistant, Ms. Fraga, provided assistance during this case by: Assisting retracting tissue, instillation of local anesthesia and closure of skin incisions.
[2018-10-31 10:04] VITALS: BP 124/82
== END 2018-10-31 09:40 | disposition home or self-care (01) ==
LOC: OROUT 05:26
PROVIDERS: ATTEND Surgery
DX: Z45.2 Encounter for adjustment and management of vascular access device (principal); C50.912 Malignant neoplasm of unspecified site of left female breast; Z90.12 Acquired absence of left breast and nipple; Z88.5 Allergy status to narcotic agent; Z88.0 Allergy status to penicillin; Z88.2 Allergy status to sulfonamides; Z98.890 Other specified postprocedural states; Z92.21 Personal history of antineoplastic chemotherapy; E66.9 Obesity, unspecified; Z86.39 Personal history of other endocrine, nutritional and metabolic disease
CPT/HCPCS: 36590; J2250; J3010; J3490 ×2; S0020; J2704; 532

== ENCOUNTER → 2018-11-27 | Outpatient (CLI) | payer MEDICAID ==
--- NOTE | 2018-11-27 10:31 | WOMENS IMAGING REPORT ---
EXAM DESCRIPTION: BONE DENSITY HIP/SPINE COMPLETED DATE/TIME: 11/27/2018 10:21 am REASON FOR STUDY: M81.0 C50.212 MALIG NEOPLASM OF UPPER-INNER QUADRANT OF LEFT FEMAL COMPARISON: None. TECHNIQUE: Dual-Energy X-ray Absorptiometry (DEXA) of the AP Spine and Hip. LIMITATIONS: None. FINDINGS: LUMBAR SPINE: The bone mineral density (BMD) measured from L1-L4 in the AP projection correlates with a T-score of -2.3, which is osteopenia as defined by the World Health Organization. HIP: The bone mineral density (BMD) measured in the left hip correlates with a T-score of -2.0, which is o steopenia as defined by the World Health Organization. IMPRESSION: 1. LUMBAR SPINE: OSTEOPENIA. 2. HIP: OSTEOPENIA. COMMENT: The World Health Organization defines low BMD as follows: T-score: Normal: Greater than -1.0 Osteopenia: Between -1.0 and -2.5 Osteoporosis: Less than -2.5 without fractures Established osteoporosis: Less than -2.5 with fractures In general, you may wish to consider: Diagnosis Treatment Follow-up DEXA Normal BMD Prevention 2-3 years Osteopenia Prevention/Therapy 1-2 years Osteoporosis Therapy Yearly TECHNICAL DOCUMENTATION: JOB ID: [id number] [employer]- All Rights Reserved Reading location - IP/workstation name: [email or web address]
--- NOTE | 2018-11-27 10:46 | WOMENS IMAGING REPORT ---
EXAM DESCRIPTION: 3D SCREENING MAMMO RIGHT COMPLETED DATE/TIME: 11/27/2018 10:21 am REASON FOR STUDY: ROUTINE RIGHT SCREENING;Z12.31 C50.212 MALIG NEOPLASM OF UPPER-INNER QUADRANT OF LEFT FEMAL COMPARISON: None. TECHNIQUE: Standard craniocaudal and mediolateral oblique views of the breast recorded using digital acquisition and breast tomosynthesis. LIMITATIONS: None. FINDINGS: BREAST: right No masses, calcifications or architectural distortion. No areas of suspicion. Read with the assistance of CAD. .[facility] - R2 Cenova Version 1.3 .[facility] Imaging - R2 Cenova Version 1.3 .[facility] - R2 Cenova Version 2.4 .[facility] - R2 Cenova Version 2.4 .[facility] - R2 Video Game Creator Version 9.2 IMPRESSION: NORMAL MAMMOGRAM. BIRADS 1. BREAST DENSITY: b. There are scattered areas of fibroglandular density. BIRAD: 1 Negative RECOMMENDATION: RECOMMENDATION: ROUTINE SCREENING. COMMENT: The patient has been notified of the results by letter per SA requirements. Additional no tification policies are in place for contacting patient with suspicious or incomplete findings. Quality ID #[id number]: The [employer] recommends an annual screening mammogram for women aged 40 years or over. This facility utilizes a reminder system to ensure that all patients receive reminder letters, and/or direct phone calls for appointments. This includes reminders for routine scr eening mammograms, diagnostic mammograms, or other Breast Imaging Interventions when appropriate. Th is patient will be placed in the appropriate reminder system. The [employer] (ACR) has developed recommendations for screening MRI of the breast s in certain patient populations, to be used in conjunction with mammography. Breast MRI surveillance may be appropriate for women with more than 20% lifetime risk of developing breast cancer as determi [place] by genetic testing, significant family history of the disease, or history of mantle radiation for Hodgkins Disease. ACR Practice Guidelines 2008. DBT Technology DBT is a type of tomographic mammography. With conventional mammography, overlapping breast tissue ma y make lesions difficult to detect, even with good compression. DBT uses an x-ray tube that rotates a round the breast, taking images at different angles. These images are then combined to create thin sl ices of the breast that the radiologist can view as a 3D reconstruction. The Next 2 Greatness unit can perform full-field digital mammograms (2D imaging); or DBT (3D imaging); or both, in a combination mode that quickly performs both the mammogram and the tomosynthesis scan while the breast is still compressed. PQRS 6045F: Fluoroscopic imaging is not utilized for breast tomosynthesis. TECHNICAL DOCUMENTATION: FINDING NUMBER: (1) ASSESSMENT: (1) JOB ID: [id number] [employer]- All Rights Reserved Reading location - IP/workstation name: [email or web address]
== END ==
LOC: WI 10:02
PROVIDERS: ATTEND Internal Medicine Hematology & Oncology
DX: Z12.31 Encounter for screening mammogram for malignant neoplasm of breast (principal); C50.212 Malignant neoplasm of upper-inner quadrant of left female breast; M81.0 Age-related osteoporosis without current pathological fracture
CPT/HCPCS: 77080

== ENCOUNTER → 2019-03-14 | Outpatient (CLI) | payer MEDICAID ==
--- NOTE | 2019-03-14 11:00 | WOMENS IMAGING REPORT ---
EXAM DESCRIPTION: U/S BREAST UNILATERAL, COMPL COMPLETED DATE/TIME: 03/14/2019 9:00 am REASON FOR STUDY: Z85.3 PERSONAL HISTORY OF MALIGNANT NEOPLASM OF BREAST Z85.3 PERSONAL HISTORY OF MALIGNANT NEOPLASM OF BREAST COMPARISON: None. TECHNIQUE: Real-time and static grayscale imaging performed of the the left breast targeted to the a dustin of clinical concern. Selected color Doppler images recorded. LIMITATIONS: None. FINDINGS: Patient is post left mastectomy 16 months ago with chemotherapy. She has a left tissue ex pander in place which is deflated. Around the periphery of the deflated tissue general magistrate implant, a multiloculated fluid collection is pr esent with fine septations, likely a seroma. Leakage of saline from the tissue general magistrate is possible with resultant fluid collection between the implant and chest wall soft tissues. Abscess or hematoma are also possible. MASS: No mass identified. Normal glandular tissue. OTHER: No other significant finding. IMPRESSION: Multiloculated fluid collection with very thin septations surrounding a deflated left an terior chest wall tissue general magistrate. This may represent a seroma, or leakage of saline from the tissue general magistrate. Abscess or hematoma could not entirely be excluded. BIRAD: 2 Benign findings. RECOMMENDATION: RECOMMENDED FOLLOW-UP: Clinical follow-up recommended COMMENT: The [employer] (ACR) has developed recommendations for screening MRI of the breasts in certain patient populations, to be used in conjunction with mammography. Breast MRI s urveillance may be appropriate for women with more than 20% lifetime risk of developing breast cancer as determined by genetic testing, significant family history of the disease, or history of mantle r adiation for Hodgkins Disease. ACR Practice Guidelines 2008. TECHNICAL DOCUMENTATION: JOB ID: [id number] [employer]- All Rights Reserved Reading location - IP/workstation name: [email or web address]
== END ==
LOC: WI 08:44
PROVIDERS: ATTEND Surgery Plastic and Reconstructive Surgery
DX: Z85.3 Personal history of malignant neoplasm of breast (principal)
CPT/HCPCS: 76641

== ENCOUNTER 2019-03-15 20:07 | Emergency (ER) | payer MEDICAID ==
[2019-03-15] MEDS ORDERED: HYDROCODONE/ACETAMINOPHEN 5-325 MG TABLET PO ONE (21:32)
--- NOTE | 2019-03-15 21:34 | ER Document Report ---
ED Medical Screen (RME) - General Chief Complaint: Breast Problem Stated Complaint: BREAST PAIN Time Seen by Provider: 03/15/19 21:26 Primary Care Provider: VALDO GARRETT MD [Primary Care Provider] - Follow up as needed Notes: Patient is a 58-year-old female presents to the emergency department with pain and swelling to her left breast. Patient states she will underwent a mastectomy for breast cancer. States she had breast implants placed in her left breast for cosmetic reasons. States she noted that she had pain in the left breast and [facility]. States they did do imaging last and told her that she had fluid that need to be drained. Patient states the last 24 hours she has noticed that the left breast has gotten red, warm to touch, hard. Patient states she called [facility] who told her she could not be seen until March 26. Patient's denying any fever, just complaining of pain. GENERAL: Alert, interacts well. No acute distress. SKIN: Warm, dry, normal turgor. Left breast is erythematous, hard to touch, warm. No obvious areas of fluctuance or induration noted I have greeted and performed a rapid initial assessment of this patient. A comprehensive ED assessment and evaluation of the patient, analysis of test results and completion of the medical decision making process will be conducted by additional ED providers. This medical record was dictated with voice recognizing software. There may be grammatical, syntax errors that are unintended. TRAVEL OUTSIDE OF THE [place] IN LAST 30 DAYS: No - Related Data Allergies/Adverse Reactions: aspirin Allergy (Verified 03/15/19 21:14) GI upset levothyroxine sodium [From Synthroid] Allergy (Verified 03/15/19 21:14) Nausea, vomiting, "flu like symptoms" morphine Allergy (Verified 03/15/19 21:14) Shortness of Breath Penicillins Allergy (Verified 03/15/19 21:14) Hives Sulfa (Sulfonamide Antibiotics) Allergy (Verified 03/15/19 21:14) Generalized rash Past Medical History - Social History Frequency of alcohol use: Occasional Drug Abuse: None - Past Medical History Cardiac Medical History: Denies: Hx Coronary Artery Disease, Hx Heart Attack, Hx Hypertension Pulmonary Medical History: Denies: Hx Asthma, Hx Bronchitis, Hx COPD, Hx Pneumonia Neurological Medical History: Denies: Hx Cerebrovascular Accident, Hx Seizures Renal/ Medical History: Denies: Hx Peritoneal Dialysis Musculoskeltal Medical History: Denies Hx Arthritis Past Surgical History: Reports: Hx Appendectomy, Hx Breast Surgery - left mastectomy, Hx Hysterectomy, Hx Thyroid Surgery, Hx Tonsillectomy - Immunizations Hx Diphtheria, Pertussis, Tetanus Vaccination: Yes - NOT UP TO DATE History of Influenza Vaccine for 08/2017 - 01/2018 Season: Yes Influenza Administration Date for 08/2017 - 01/2018 Season: 08/13/18 Physical Exam - Vital signs Vitals: Temp Pulse Resp BP Pulse Ox 99.0 F 95 20 149/101 H 99 03/15/19 20:18 03/15/19 20:18 03/15/19 20:18 03/15/19 20:18 03/15/19 20:18 Course - Vital Signs Vital signs: Temp Pulse Resp BP Pulse Ox 99.0 F 95 20 149/101 H 99 03/15/19 20:18 03/15/19 20:18 03/15/19 20:18 03/15/19 20:18 03/15/19 20:18 Doctor's Discharge - Discharge Referrals: VALDO GARRETT MD [Primary Care Provider] - Follow up as needed
[2019-03-15 22:36] LABS: ABSOLUTE BASOPHILS # (AUTO) 0.1 10^3/uL (0.0-0.2); ABSOLUTE EOSINOPHILS # (AUTO) 0.2 10^3/uL (0.0-0.6); ABSOLUTE LYMPHOCYTES (AUTO) 2.4 10^3/uL (0.5-4.7); ABSOLUTE MONOCYTES (AUTO) 0.6 10^3/uL (0.1-1.4); ABSOLUTE NEUT (AUTO) 5.1 10^3/uL (1.7-8.2); BASOPHILS % (AUTO) 1.2 % (0-2); HEMATOCRIT 44.2 % (36.0-47.0); HEMOGLOBIN 14.7 g/dL (12.0-15.5); LYMPHOCYTES % (AUTO) 28.3 % (13-45); MEAN CORPUSCULAR HGB CONC 33.2 g/dL (32.0-36.0); MEAN CORPUSCULAR VOLUME 88 fl (80-97); MONOCYTES % (AUTO) 7.3 % (3-13); PLATELET COUNT 241 10^3/uL (150-450); RED BLOOD COUNT 5.05 10^6/uL (3.72-5.28); SEGMENTED NEUTROPHILS % (AUTO) 61.2 % (42-78); TOTAL CELLS COUNTED % (AUTO) 100 %; WHITE BLOOD COUNT 8.4 10^3/uL (4.0-10.5)
[2019-03-15 22:53] LABS: ANION GAP 10 (5-19); BLOOD UREA NITROGEN 9 mg/dL (7-20); CALCIUM 10.3 mg/dL (8.4-10.2); CARBON DIOXIDE 29 mmol/L (22-30); CHLORIDE 103 mmol/L (98-107); GLUCOSE 129 mg/dL (75-110); SODIUM 142.3 mmol/L (137-145)
--- NOTE | 2019-03-16 04:02 | RADIOLOGY REPORT (SQ) ---
EXAM DESCRIPTION: US BREAST UNILATERAL LIMITED COMPLETED DATE/TME: 03/15/2019 21:31 CLINICAL HISTORY: 58 years, Female, left,redness/swelling/pain COMPARISON: March 14, 2019 TECHNIQUE: Grayscale sonographic imaging of the area of concern in the left breast was performed. FINDINGS: Multiloculated fluid collection within the superficial soft tissues of the left breast is similar in appearance to prior study performed one day prior. This fluid collection is situated between a deflated tissue drupal architect/implant and the anterior chest wall. IMPRESSION: Multiloculated fluid collection in the superficial soft tissues of the left breast unchanged from previous exam. Complete percutaneous drainage is probably not feasible due to extensive septations.
--- NOTE | 2019-03-16 04:17 | ER Document Report ---
ED Breast Problem - General Chief Complaint: Breast Problem Stated Complaint: BREAST PAIN Time Seen by Provider: 03/15/19 21:26 Primary Care Provider: VALDO GARRETT MD [NO LOCAL MD] - Follow up as needed Notes: Patient is a 58-year-old female presents to the emergency department for redness and pain to her left breast. Patient states she underwent mastectomy of her left breast 1 year ago due to cancer. States 15 weeks ago she received an implant in her left breast for cosmetic reasons. States she noticed some inc rease in pain and swelling so [facility] States then they did an ultrasound which showed a fluid collection. States they told her it did need to be drained but they could not get her an appointment until 03/26/2019. States the last 24 hours she is noticed some redness, increased swelling and warmth to the left breast which is what presents her to the emergency room. Patient's denying any fever, vomiting. Her only complaint is increased pain in her left breast. TRAVEL OUTSIDE OF THE [place].S. IN LAST 30 DAYS: No - Related Data Allergies/Adverse Reactions: aspirin Allergy (Verified 03/15/19 21:14) GI upset levothyroxine sodium [From Synthroid] Allergy (Verified 03/15/19 21:14) Nausea, vomiting, "flu like symptoms" morphine Allergy (Verified 03/15/19 21:14) Shortness of Breath Penicillins Allergy (Verified 03/15/19 21:14) Hives Sulfa (Sulfonamide Antibiotics) Allergy (Verified 03/15/19 21:14) Generalized rash Past Medical History - General Information source: Patient - Social History Smoking Status: Never Smoker Frequency of alcohol use: Occasional Drug Abuse: None Family History: Reviewed & Not Pertinent Patient has suicidal ideation: No Patient has homicidal ideation: No - Past Medical History Cardiac Medical History: Denies: Hx Coronary Artery Disease, Hx Heart Attack, Hx Hypertension Pulmonary Medical History: Denies: Hx Asthma, Hx Bronchitis, Hx COPD, Hx Pneumonia Neurological Medical History: Denies: Hx Cerebrovascular Accident, Hx Seizures Renal/ Medical History: Denies: Hx Peritoneal Dialysis Musculoskeletal Medical History: Denies Hx Arthritis Past Surgical History: Reports: Hx Appendectomy, Hx Breast Surgery - left mastectomy, Hx Hysterectomy, Hx Thyroid Surgery, Hx Tonsillectomy - Immunizations Hx Diphtheria, Pertussis, Tetanus Vaccination: Yes - NOT UP TO DATE Hx Pneumococcal Vaccination: 11/13/15 Review of Systems - Review of Systems Constitutional: denies: Fever EENT: No symptoms reported Cardiovascular: No symptoms reported Respiratory: No symptoms reported Gastrointestinal: No symptoms reported Genitourinary: No symptoms reported Female Genitourinary: No symptoms reported Musculoskeletal: See HPI Skin: See HPI Hematologic/Lymphatic: No symptoms reported Neurological/Psychological: No symptoms reported Physical Exam - Vital signs Vitals: Temp Pulse Resp BP Pulse Ox 99.0 F 95 20 149/101 H 99 03/15/19 20:18 03/15/19 20:18 03/15/19 20:18 03/15/19 20:18 03/15/19 20:18 - Notes Notes: GENERAL: Alert, interacts well. No acute distress. HEAD: Normocephalic, atraumatic. EYES: Pupils equal, round, and reactive to light. Extraocular movements intact. ENT: Oral mucosa moist, tongue midline. NECK: Full range of motion. Supple. Trachea midline. LUNGS: Clear to auscultation bilaterally, no wheezes, rales, or rhonchi. No respiratory distress. HEART: Regular rate and rhythm. No murmur ABDOMEN: Soft, non-tender. Non-distended. Bowel sounds present in all 4 quadrants. EXTREMITIES: Moves all 4 extremities spontaneously. No edema, normal radial and dorsalis pedis pulses bilaterally. No cyanosis. BACK: no cervical, thoracic, lumbar midline tenderness. No saddle anesthesia, normal distal neurovascular exam. NEUROLOGICAL: Alert and oriented x3. Normal speech. cranial nerves II through XII grossly intact PSYCH: Normal affect, normal mood. SKIN: Warm, dry, normal turgor. Left breast has a horizontal well-healed surgical scar noted through entire breast 9:00 to 3:00. Below scar does appear erythematous and warm to touch. No obvious fluctuance or induration noted. Course - Re-evaluation Re-evalutation: Patient states she initially saw a plastic surgeon in [place]. States that was Dr. Barlow. States she does not like him and does not want to return to him. States she has found a surgeon in [facility] that she will follow-up with. States she cannot get into see him until March 26. 03/16/19 06:[address] Magaña has been in the emergency department to evaluate the patient. He is in agreement with plan patient is should be discharged home on doxycycline. Patient's also follow-up with the plastic surgeon who performed the procedure done in [place]. Patient is very adamant that she did not like this plastic surgeon and she wants to follow-up in [place]. States she cannot get into the plastic surgeon in [place] until 03/26 discussed that she should not wait that long for continued care. Discussed following up with the plastic surgeon down in [place]. Patient states she will call in the next 24 to 48 hours. Patient's labs show no signs of leukocytosis, she has no fever no vomiting. At this point time Dr. Magaña also feels that the patient is stable for discharge with close follow-up. - Vital Signs Vital signs: Temp Pulse Resp BP Pulse Ox 98.4 F 83 18 144/94 H 95 03/16/19 01:33 03/16/19 01:33 03/16/19 01:33 03/16/19 01:33 03/16/19 01:33 - Laboratory Result Diagrams: 03/15/19 22:22 03/15/19 22:22 Laboratory results interpreted by me: 03/15/19 22:22 Glucose 129 H Calcium 10.3 H Discharge - Discharge Clinical Impression: Cellulitis Qualifiers: Site of cellulitis: trunk Site of cellulitis of trunk: chest wall Qualified Code(s): L03.313 - Cellulitis of chest wall Condition: Stable Disposition: HOME, SELF-CARE Instructions: Cellulitis (OM) Additional Instructions: As we discussed you have been seen and treated in the emergency department for swelling and redness to your left breast. At this point time you have been seen by the surgeon Dr. Magaña. He is in a grants that you should take prescribed antibiotics and follow-up with the plastic surgeon that performed your procedure. We both are in agreement that you cannot wait until March 26 to follow-up. You should call your plastic surgeon tomorrow for continued care. Please also follow-up with your primary care provider in the next 24 hours for a wound recheck. Please return to the emergency room should you have any other concerning symptoms. Prescriptions: RX: Doxycycline Hyclate 100 mg PO BID #14 capsule Referrals: VALDO GARRETT MD [NO LOCAL MD] - Follow up as needed
[2019-03-16] MEDS ORDERED: CEFTRIAXONE 1 GM/D5W RTU 1 GM/50 ML RTUPB IV ONE (05:00)
[2019-03-16 06:30] VITALS: BP 153/93
== END 2019-03-16 06:29 | disposition home or self-care (01) ==
LOC: ER 20:07
DX: L03.313 Cellulitis of chest wall (principal); N64.4 Mastodynia; Z90.12 Acquired absence of left breast and nipple; Z88.6 Allergy status to analgesic agent; Z88.0 Allergy status to penicillin; Z88.2 Allergy status to sulfonamides; Z90.710 Acquired absence of both cervix and uterus
CPT/HCPCS: 99284; 36415; 85025; 80048; 76642; J0696

== ENCOUNTER 2019-05-26 20:30 | Emergency (ER) | payer MEDICAID ==
[2019-05-26] MEDS ORDERED: OXYCODONE-ACETAMINOPHEN 5-325 MG TABLET PO ONE (22:13)
[2019-05-26] MEDS ORDERED: ONDANSETRON HCL INJ/PF 4 MG/2 ML SDV IV ONE (22:15)
[2019-05-26] MEDS ORDERED: OXYCODONE-ACETAMINOPHEN 5-325 MG TABLET ONE (22:40)
[2019-05-26 22:48] LABS: ABSOLUTE BASOPHILS # (AUTO) 0.1 10^3/uL (0.0-0.2); ABSOLUTE EOSINOPHILS # (AUTO) 0.2 10^3/uL (0.0-0.6); ABSOLUTE MONOCYTES (AUTO) 0.4 10^3/uL (0.1-1.4); ABSOLUTE NEUT (AUTO) 4.5 10^3/uL (1.7-8.2); BASOPHILS % (AUTO) 1.3 % (0-2); EOSINOPHILS % (AUTO) 2.3 % (0-6); HEMATOCRIT 42.1 % (36.0-47.0); LYMPHOCYTES % (AUTO) 27.4 % (13-45); MEAN CORPUSCULAR HEMOGLOBIN 29.2 pg (27.0-33.4); MEAN CORPUSCULAR HGB CONC 33.2 g/dL (32.0-36.0); MEAN CORPUSCULAR VOLUME 88 fl (80-97); MONOCYTES % (AUTO) 6.2 % (3-13); PLATELET COUNT 228 10^3/uL (150-450); RED BLOOD COUNT 4.79 10^6/uL (3.72-5.28); RED CELL DISTRIBUTION WIDTH 15.6 % (11.5-14.0); SEGMENTED NEUTROPHILS % (AUTO) 62.8 % (42-78); TOTAL CELLS COUNTED % (AUTO) 100 %; WHITE BLOOD COUNT 7.2 10^3/uL (4.0-10.5)
[2019-05-27 00:42] LABS: ALANINE AMINOTRANSFERASE 17 U/L (9-52); ALBUMIN 4.5 g/dL (3.5-5.0); ALKALINE PHOSPHATASE 110 U/L (38-126); ANION GAP 10 (5-19); ASPARTATE AMINO TRANSFERASE 23 U/L (14-36); BILIRUBIN,DIRECT 0.3 mg/dL (0.0-0.4); BILIRUBIN,TOTAL 0.4 mg/dL (0.2-1.3); BLOOD UREA NITROGEN 21 mg/dL (7-20); CALCIUM 9.6 mg/dL (8.4-10.2); CARBON DIOXIDE 27 mmol/L (22-30); CHLORIDE 105 mmol/L (98-107); GLUCOSE 92 mg/dL (75-110); SODIUM 141.7 mmol/L (137-145); TOTAL PROTEIN 7.5 g/dL (6.3-8.2)
--- NOTE | 2019-05-27 01:06 | ER Document Report ---
ED General - General Chief Complaint: Numbness of Arm Stated Complaint: LEG PAIN, LEFT ARM TINGLING Time Seen by Provider: 05/26/19 21:52 Mode of Arrival: Ambulatory Information source: Patient TRAVEL OUTSIDE OF THE [place] IN LAST 30 DAYS: No - HPI Patient complains to provider of: Complained of burning pain in both lower extremities which is chronic. Onset: Other - This has been ongoing for months but became worse 2 days ago. Onset/Duration: Gradual Quality of pain: Burning Severity: Moderate Pain Level: 3 Associated symptoms: Nausea Exacerbated by: Denies Relieved by: Denies Similar symptoms previously: Yes Recently seen / treated by doctor: No - Related Data Allergies/Adverse Reactions: aspirin Allergy (Verified 03/15/19 21:14) GI upset levothyroxine sodium [From Synthroid] Allergy (Verified 03/15/19 21:14) Nausea, vomiting, "flu like symptoms" morphine Allergy (Verified 03/15/19 21:14) Shortness of Breath Penicillins Allergy (Verified 03/15/19 21:14) Hives Sulfa (Sulfonamide Antibiotics) Allergy (Verified 03/15/19 21:14) Generalized rash Past Medical History - General Information source: Patient - Social History Smoking Status: Unknown if Ever Smoked Family History: Reviewed & Not Pertinent - Past Medical History Cardiac Medical History: Denies: Hx Coronary Artery Disease, Hx Heart Attack, Hx Hypertension Pulmonary Medical History: Denies: Hx Asthma, Hx Bronchitis, Hx COPD, Hx Pneumonia Neurological Medical History: Denies: Hx Cerebrovascular Accident, Hx Seizures Renal/ Medical History: Denies: Hx Peritoneal Dialysis Musculoskeletal Medical History: Denies Hx Arthritis Past Surgical History: Reports: Hx Appendectomy, Hx Breast Surgery - left mastectomy, Hx Hysterectomy, Hx Thyroid Surgery, Hx Tonsillectomy - Immunizations Hx Diphtheria, Pertussis, Tetanus Vaccination: Yes - NOT UP TO DATE Hx Pneumococcal Vaccination: 11/13/15 Review of Systems - Review of Systems Constitutional: No symptoms reported EENT: No symptoms reported Cardiovascular: No symptoms reported Respiratory: No symptoms reported Gastrointestinal: No symptoms reported Genitourinary: No symptoms reported Female Genitourinary: No symptoms reported Musculoskeletal: Other - Chronic burning pain in both lower extremities. No trauma. Skin: No symptoms reported Hematologic/Lymphatic: No symptoms reported Neurological/Psychological: No symptoms reported -: Yes All other systems reviewed and negative Physical Exam - Vital signs Vitals: Temp Pulse Resp BP Pulse Ox 98.2 F 90 18 169/110 H 96 05/26/19 20:44 05/26/19 20:44 05/26/19 20:44 05/26/19 20:44 05/26/19 20:44 Interpretation: Normal - General General appearance: Appears well, Alert In distress: None - HEENT Head: Normocephalic, Atraumatic Eyes: Normal Pupils: PERRL - Respiratory Respiratory status: No respiratory distress Chest status: Nontender Breath sounds: Normal Chest palpation: Normal - Cardiovascular Rhythm: Regular Heart sounds: Normal auscultation Murmur: No - Abdominal Inspection: Normal Distension: No distension Bowel sounds: Normal Tenderness: Nontender Organomegaly: No organomegaly - Back Back: Normal, Nontender - Extremities General upper extremity: Normal inspection, Nontender, Normal color, Normal ROM, Normal temperature General lower extremity: Normal inspection, Nontender, Normal color, Normal ROM, Normal temperature, Normal weight bearing. No: Darnell's sign - Neurological Neuro grossly intact: Yes Cognition: Normal Orientation: AAOx4 [place] Coma Scale Eye Opening: Spontaneous Eder Coma Scale Verbal: Oriented Eder Coma Scale Motor: Obeys Commands [place] Coma Scale Total: 15 Speech: Normal Motor strength normal: LUE, RUE, LLE, RLE Sensory: Normal - Psychological Associated symptoms: Normal affect, Normal mood - Skin Skin Temperature: Warm Skin Moisture: Dry Skin Color: Normal Course - Re-evaluation Re-evalutation: 05/27/19 04:07 I discussed patient labs and inform her to follow-up with her regular doctor for management of her chronic peripheral neuropathy. She said that her pain has resolved in the ED after the Percocets. I will send her home with a few Percocets and she promised to follow-up with your doctor tomorrow morning. - Vital Signs Vital signs: Temp Pulse Resp BP Pulse Ox 98.2 F 90 15 117/83 91 L 05/26/19 20:44 05/26/19 20:44 05/27/19 01:01 05/27/19 01:00 05/27/19 01:01 - Laboratory Result Diagrams: 05/26/19 22:35 05/26/19 23:36 Laboratory results interpreted by me: 05/26/19 05/26/19 22:35 23:36 RDW 15.6 H BUN 21 H Discharge - Discharge Clinical Impression: Peripheral neuropathy Qualifiers: Peripheral neuropathy type: polyneuropathy, unspecified Qualified Code(s): G62. 9 - Polyneuropathy, unspecified Condition: Stable Disposition: HOME, SELF-CARE Instructions: Neuropathy ([facility]) Additional Instructions: Please follow-up with your oncologist Dr. Overton on Monday morning as scheduled. Return to the emergency room if your condition worsens. Prescriptions: Oxycodone HCl/Acetaminophen [Percocet 5-325 mg Tablet] 1 - 2 tab PO Q8H PRN #10 tablet PRN Reason:
[2019-05-27 01:09] VITALS: BP 117/83
== END 2019-05-27 01:21 | disposition home or self-care (01) ==
LOC: ER 20:30
DX: G62.9 Polyneuropathy, unspecified (principal); R20.0 Anesthesia of skin; M79.602 Pain in left arm
CPT/HCPCS: 99283; 96374; 36415; 85025; 80053; J2405

== ENCOUNTER → 2019-05-31 | Outpatient (CLI) | payer MEDICAID ==
--- NOTE | 2019-05-31 14:32 | RADIOLOGY REPORT (SQ) ---
EXAM DESCRIPTION: PELVIS AP COMPLETED DATE/TIME: 05/31/2019 11:48 am REASON FOR STUDY: POLYNEUROPATHY, UNSPECIFIED G62.9 POLYNEUROPATHY, UNSPECIFIED COMPARISON: None. NUMBER OF VIEWS: One view TECHNIQUE: AP Pelvis LIMITATIONS: None. FINDINGS: MINERALIZATION: Osteopenic HIPS: No acute fracture or dislocation. No worrisome bone lesions. Mild bilateral hip joint space na rrowing and bony spurring PELVIS AND SACRUM: No acute fracture or dislocation. No worrisome bone lesions. SI joints are unrema rkable. PUBIS AND ISCHIUM: No acute fracture. SOFT TISSUES: No findings. OTHER: No other significant finding. IMPRESSION: Mild bilateral hip joint space narrowing and bony spurring. Otherwise unremarkable stud y COMMENT: Pelvic fractures are often occult on plain radiographs. If strong clinical suspicion for f racture, recommend CT or MR. TECHNICAL DOCUMENTATION: JOB ID: [id number] [employer]- All Rights Reserved Reading location - IP/workstation name: [email or web address]
--- NOTE | 2019-05-31 14:34 | RADIOLOGY REPORT (SQ) ---
EXAM DESCRIPTION: LUMBAR SPINE 2 VIEWS COMPLETED DATE/TIME: 05/31/2019 11:48 am REASON FOR STUDY: POLYNEUROPATHY, UNSPECIFIED G62.9 POLYNEUROPATHY, UNSPECIFIED COMPARISON: None. NUMBER OF VIEWS: Two views. TECHNIQUE: AP and lateral radiographic images acquired of the lumbar spine. LIMITATIONS: None. FINDINGS: MINERALIZATION: Osteoporotic SEGMENTATION: Normal. No transitional anatomy. ALIGNMENT: Normal. VERTEBRAE: Greater than 50% loss of height at the L5 vertebral body with bony sclerosis. This likely represents a chronic compression deformity. DISCS: Preserved height. No significant osteophytes or end plate irregularity. POSTERIOR ELEMENTS: Pedicles and facets are intact. No pars defect or posterior arch defects. L4-5 and L5-S1 facet arthropathy HARDWARE: None in the spine. PARASPINAL SOFT TISSUES: Normal. PELVIS: Intact as visualized. No fractures or worrisome bone lesions. SI joints intact. OTHER: No other significant finding. IMPRESSION: Greater than 50% compression fracture at L5, likely chronic. Correlate clinically for m yeloma or other marrow replacement process TECHNICAL DOCUMENTATION: JOB ID: [id number] [employer]- All Rights Reserved Reading location - IP/workstation name: [email or web address]
== END ==
LOC: OD 11:02
PROVIDERS: ATTEND Nurse Practitioner Primary Care
DX: M54.5 Low back pain (principal); G62.9 Polyneuropathy, unspecified
CPT/HCPCS: 72100; 72170

== ENCOUNTER → 2019-06-05 | Outpatient (CLI) | payer MEDICAID ==
--- NOTE | 2019-06-05 14:39 | RADIOLOGY REPORT (SQ) ---
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 Coronal T2/HASTE imaging. CONTRAST TYPE AND DOSE: 15 CC mL Dotarem. RENAL FUNCTION: GFR > 60. LIMITATIONS: None. FINDINGS: VISUALIZED UPPER ABDOMEN: Limited evaluation. No acute or suspicious findings suggested. SEGMENTATION: No transitional anatomy. The lowest well-developed disc space is labeled L5-S1. ALIGNMENT: Mild levoconvex curvature of the lumbar spine. VERTEBRAE: Compression deformity of the L5 vertebral body with approximately 50% height loss througho ut. There is mild retropulsion as detailed below. BONE MARROW: There is abnormal low T1 marrow signal throughout the L5 vertebral body and extending in to the bilateral pedicles with abnormal postcontrast enhancement and associated edema. There are add itional areas of abnormal low T1 signal involving the right sacral ala measuring approximately 2.5 by 1.5 cm. Additional area of abnormal low T1 signal and postcontrast enhancement involving the right ear at ilium abutting the sacroiliac joint measuring 2.2 x 2.0 cm. Small additional focus of abnorma l bone marrow signal within the midline sacrum at the level of S1 measuring 17 x 15 mm. There are pu nctate additional areas of abnormal signal within the L1 and L3 vertebral bodies. DISC SIGNAL: There is mild disc desiccation and height loss involving L1-2, L2-3, L3-4 discs. POSTERIOR ELEMENTS: No pars defects. Abnormal marrow signal within the L5 pedicles as above. HARDWARE: None in the spine. CORD AND CONUS: Normal in size and signal intensity. Conus medullaris terminates at L2. SOFT TISSUES: No aortic aneurysm seen. No bulky retroperitoneal adenopathy or mass. No paraspinal mas s or fluid. L1-L2: Mild broad based disc without significant spinal canal stenosis. There is minimal neural fora federico narrowing, right greater than left. L2-L3: Small broad-based circumferential disc without significant spinal canal stenosis. No signific ant neural foraminal narrowing. L3-L4: Small circumferential disc with no significant spinal canal stenosis. There is barv-oc-hetncr te left neural foraminal narrowing secondary to far lateral disc bulge and facet hypertrophy. L4-L5: Pathologic fracture at L5 with retropulsion causing moderate central canal stenosis. There is moderate right and moderate to severe left neural foraminal narrowing secondary to disc and facet di sease. L5-S1: No significant spinal stenosis or exit foraminal stenosis. LOWER THORACIC: Incompletely imaged. No stenosis seen. SACRUM: Pathologic marrow replacing process as detailed above. ENHANCEMENT: Abnormal enhancement as detailed above. OTHER: No other significant findings. IMPRESSION: 1. Pathologic compression fracture of L5 with retropulsion causing moderate canal steno sis. There is associated moderate right and moderate to severe left neural foraminal narrowing. 2. Additional areas of abnormal signal and enhancement involving the sacrum, right ilium, L1 and L3 vertebral bodies most compatible with metastatic deposits. Consider bone scan for full evaluation of the axial skeleton. Case discussed with Dr. Kline at at 1421 hours on 06/05/2019. TECHNICAL DOCUMENTATION: JOB ID: [id number] [employer]- All Rights Reserved Reading location - IP/workstation name: [email or web address]
== END ==
LOC: RAD 12:53
PROVIDERS: ATTEND Internal Medicine Hematology & Oncology
DX: C50.212 Malignant neoplasm of upper-inner quadrant of left female breast (principal); M48.56XD Collapsed vertebra, not elsewhere classified, lumbar region, subsequent encounter for fracture with routine healing; C79.51 Secondary malignant neoplasm of bone
CPT/HCPCS: 72158; A9576

== ENCOUNTER → 2019-06-15 | Outpatient (CLI) | payer MEDICAID ==
--- NOTE | 2019-06-15 13:51 | RADIOLOGY REPORT (SQ) ---
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 TECHNIQUE: Multiplanar imaging includes noncontrasted T1, T2, FLAIR, diffusion with ADC map and post gadolinium contrast T1 sequences. Images stored on PACS. Multiplanar imaging of the cervical spine includes T1, T2 and STIR. Post contrast T1. Images stored on PACS. Multiplanar imaging of the thoracic spine includes T1, T2 and STIR. Post contrast T1. Images stored on PACS. CONTRAST TYPE AND DOSE: Contrast dose and type unavailable. RENAL FUNCTION: Not indicated. ACR Type II contrast agent associated with few, if any, unconfounded cases of NSF LIMITATIONS: None. FINDINGS: BRAIN ANATOMY: No anomalies. Normal vascular flow voids. Pituitary fossa normal. CSF SPACES: Normal in size and contour. No hemorrhage. CEREBRUM: Sulci and gyri normal in size and contour. Normal white matter signal on FLAIR imaging. No evidence of hemorrhage, mass, or extraaxial fluid collection. No abnormal enhancement post contrast. POSTERIOR FOSSA: No signal alteration. No hemorrhage. No edema, masses, or mass effect. Internal nigel tory canals, cerebellopontine angles, mastoids normal. No enhancing lesions. No abnormal enhancement post contrast. DIFFUSION IMAGING: Negative for acute or subacute infarction. ORBITS: No masses. Globes normal. PARANASAL SINUSES: No fluid levels. OTHER: No other significant finding. CERVICAL SPINE ALIGNMENT: Normal. MARROW SIGNAL: Marrow replacement throughout the C7 vertebral body, which looks diminished in height . There is also abnormal marrow signal extending into the left posterior elements at this level and in the left pedicle at T1. These areas are consistent with metastatic disease and show mild enhancem ent. CORD SIGNAL: Normal. STENOSIS: No willie cord compression or high-grade central stenosis. At the pathologic C7 compressio n level, there is slight retropulsion with mild narrowing of the canal. SOFT TISSUES: No gross paraspinal mass. ENHANCEMENT: As above. No other abnormal enhancement. THORACIC SPINE ALIGNMENT: Normal. MARROW SIGNAL: Focal diminished T1 signal in the posterior left T3 vertebral body. This area appear s to enhance and is suspicious. There is also a similar lesion and a upper L1 vertebral body. See r ecent MRI lumbar spine study from May. CORD SIGNAL: Normal. STENOSIS: None noted. No large disc bulges or hernias. SOFT TISSUES: No mass. ENHANCEMENT: As above. IMPRESSION: 1. Normal MRI of the brain. No suspicious lesions. 2. Cervical spine lesions at C7 and T1. Includes a presumed pathologic metastatic compression fractu re at C7. 3. Subtle foci in the thoracic spine and lumbar spine, suspicious for other areas of metastatic disea se. EVIDENCE OF ACUTE STROKE: NO. TECHNICAL DOCUMENTATION: JOB ID: [id number] [employer]- All Rights Reserved Reading location - IP/workstation name: [email or web address]
== END ==
LOC: WI 10:31
PROVIDERS: ATTEND Internal Medicine Hematology & Oncology
DX: C50.212 Malignant neoplasm of upper-inner quadrant of left female breast (principal); C79.51 Secondary malignant neoplasm of bone; G95.20 Unspecified cord compression
CPT/HCPCS: 70553; 72156; 72157; A9576